=== PATIENT | female | born 1980 | race Caucasian/White ===

== ENCOUNTER 2024-05-27 09:27 | Emergency (ER) | payer BC, SELFPAY ==
[2024-05-27 09:47] VITALS: BP 130/75
[2024-05-27 10:24] LABS: % Basophils 0.3 % (0-2); % Eosinophils 0.1 % (0-6); % Immature Granulocytes 0.3 % (0-0.5); % Lymphocytes 4.7 % (20.5-51.1); % Monocytes 3.5 % (1.7-9.3); % Neutrophils 91.1 % (42.2-75.2); Absolute Lymphocytes 0.6 10^3/uL (1.2-3.4); Absolute Monocytes 0.4 10^3/uL (0.1-0.6); Absolute Neutrophils 10.8 10^3/uL (1.4-6.5); Hematocrit 35.6 % (37.0-47.0); Hemoglobin 12.1 g/dL (12.0-16.0); Mean Corpuscular Hgb 30.1 pg (27.0-31.0); Mean Corpuscular Volume 88.6 fL (81.0-99.0); Mean Platelet Volume 9.8 fL (7.4-10.4); Nucleated Red Blood Cells % 0 %; Platelet Count 229 10^3/uL (130-400); Red Blood Cell Count 4.02 10^6/uL (4.20-5.40); Red Cell Dist. Width 12.7 % (11.5-14.5); Urine Albumin Trace (Neg - Trace); Urine Bilirubin Negative (Negative); Urine Character Very Cloudy (Clear); Urine Color Yellow; Urine Glucose Negative (Negative); Urine Ketone 2+ (Negative); Urine Leukocyte 2+ (Negative); Urine Nitrite Positive (Negative); Urine Occult Blood 1+ (Negative); Urine Urobilinogen Negative (Neg - 1+); White Blood Cell Count 11.9 10^3/uL (4.8-10.8)
[2024-05-27 10:32] LABS: HCG, Serum Qualitative Screen Negative
[2024-05-27 10:36] LABS: Urine Bacteria Many (Negative); Urine Red Blood Cell 0-2 /HPF (0-2); Urine White Cell 50-60 /HPF (0-5)
[2024-05-27 10:38] LABS: ALT (SGPT) 14 U/L (0-35); AST (SGOT) 18 U/L (14-36); Alkaline Phosphatase 65 U/L (38-126); Blood Urea Nitrogen 10 mg/dl (7-17); Calcium 8.5 mg/dl (8.4-10.2); Carbon Dioxide 18 mmol/L (22-30); Chloride 101 mmol/L (98-107); Glucose 138 mg/dl (70-99); Potassium 3.8 mmol/L (3.5-5.1); Sodium 132 mmol/L (135-145); Total Bilirubin 0.4 mg/dl (0.2-1.3); Total Protein 6.8 g/dl (6.3-8.2); eGFR > 60.00
--- NOTE | 2024-05-27 11:17 | ED.GENMED ---
History of Present Illness
General
Chief Complaint: Back Pain
Source: patient
Exam Limitations: none
Time Seen by Provider: 05/27/24 11:07
History of Present Illness
History of Present Illness:
43yoF with a history of kidney stones, hypothyroidism, hyperlipidemia, anxiety, and depression presenting for evaluation of flank pain. Patient started having UTI symptoms last week. She had a telehealth appointment 6 days ago and was prescribed a
7-day course of Macrobid. She developed flank pain after starting the antibiotic. She was seen by her urologist ([facility]) 3 days ago and an outpatient CT scan was ordered which is scheduled for next week. Patient reports chills but
denies any fevers. She has developed nausea and vomiting within the past 24 hours. She had 1 episode of vomiting yesterday afternoon and 1 episode this morning. She is also experiencing worsening flank pain. Her pain initially started on the
left side but is now present bilaterally. She is worried that she has a kidney stone.
Past History
Past History
ED Past Medical History: Hypercholesterolemia, Hypothyroidism, Psychiatric (Anxiety , Depression) and Other (Vertigo, Renal calculus, )
ED Past Surgical History: Cholecystectomy and Other (Liver resection)
Social History
Tobacco: Non-smoker
Alcohol: Occasional
Drug: None
Personal:
Living: with family
Phy Exam
General Physical Exam
General Presentation: well appearing and no apparent distress
General age: appears stated age
General Skin: warm and dry
General Habitus: normal
General Mental: alert
ENT Exam
ENT Exam: normocephalic
Cardiovascular Exam
Cardiovascular Exam: no murmur and tachycardia
Pulmonary Exam
Pulmonary Exam: lungs clear, no respiratory distress, no rales, no crackles and no rhonchi
Gastrointestinal Exam
Gastrointestinal Exam: non tender, soft, non distended and no cva tenderness
Neurological Exam
Neurological Exam: alert
[place] Coma Scale
Eye Opening: Spontaneous
Verbal Response: Oriented
Motor Response: Obeys Commands
GCS Total Score: 15
Musculoskeletal Exam
Musculoskeletal Exam: other (+Tenderness in paraspinal musculature in lumbar region)
Skin Exam
Skin Exam: normal color and warm/dry
Psychiatric Exam
Psychiatric Exam: normal mood/affect
Course
Orders/Labs/Results
Orders:
Orders
05/27/24 09:51
EKG [Electrocardiogram (*1)] Urgent
Reason for Study: Fatigue / Weakness
EKG- Treatment ONCE
05/27/24 09:52
Test Result ONCE
05/27/24 10:08
CBC/With Diff [Complete Blood Count/With Diff] Urgent
Comprehensive Metabolic Panel Urgent
HCG, Serum Qualitative Screen Urgent
Urinalysis Reflex To Culture Urgent
Date Specimen was Collected: 05/27/24
Time Specimen was Collected: 09:52
Urine Microscopic Reflex Cult Urgent
Urine Culture Urgent
MONSE Source: U
Specimen Description:
Date Specimen was Collected: 05/27/24
Time Specimen was Collected: 09:52
05/27/24 11:15
0.9% Sodium Chloride 1000 ml [Nss] 1,000 ml IV BOLUS
CefTRIAXone [Rocephin] 2,000 mg IV NOW STA
05/27/24 11:16
CT Abd/pel Without Iv Or Oral Urgent
Comment:
Reason For Exam: bilateral flank pain, UTI symptoms
05/27/24 11:41
Lactate Level [Lactic Acid] Urgent
Blood Culture Q30M
MONSE Source: Blood/Venous
Specimen Description:
Blood Culture Q30M
MONSE Source: Blood/Venous
Specimen Description:
05/27/24 11:51
Ketorolac [Toradol] 15 mg .ROUTE .STK-MED ONE
05/27/24 11:52
Ketorolac [Toradol] 15 mg IV NOW STA
Abnormal Lab Results
05/27/24
10:08
WBC 11.9 H 10^3/uL
(4.8-10.8)
RBC 4.02 L 10^6/uL
(4.20-5.40)
Hct 35.6 L %
(37.0-47.0)
Absolute Neuts (auto) 10.8 H 10^3/uL
(1.4-6.5)
Absolute Lymphs (auto) 0.6 L 10^3/uL
(1.2-3.4)
Neutrophils % 91.1 H %
(42.2-75.2)
Lymphocytes % 4.7 L %
(20.5-51.1)
Sodium 132 L mmol/L
(135-145)
Carbon Dioxide 18 L mmol/L
(22-30)
Glucose 138 H mg/dl
(70-99)
Urine Ketones 2+ A
(Negative)
Ur Occult Blood Reflex 1+ A
(Negative)
Urine Nitrite (Reflex) Positive A
(Negative)
Leukocyte Esterase Rfl 2+ A
(Negative)
Urine WBC (Reflex) 50-60 A /HPF
(0-5)
Urine Bacteria (Reflex) Many A
(Negative)
05/27/24 10:08
05/27/24 10:08
Vital Signs
Initial and Last Documented VS:
Initial Vital Signs
Temp Pulse Resp BP Pulse Ox
98.5 F 112 16 130/75 98
05/27/24 09:47 05/27/24 09:47 05/27/24 09:47 05/27/24 09:47 05/27/24 09:47
Last Documented Vital Signs
Temp Pulse Resp BP Pulse Ox
98.5 F 103 18 116/69 98
05/27/24 09:47 05/27/24 11:55 05/27/24 11:55 05/27/24 11:55 05/27/24 09:47
MDM/Problems Addressed
Differential Diagnosis Includes:
43yoF here with flank/back pain. Currently on Macrobid for a UTI. C/o worsening flank pain, chills, n/v. No fevers. HR 112 on arrival. Remainder of vitals stable. She is acutely non-toxic appearing. No abdominal or CVA tenderness present.
Differential diagnosis includes but is not limited to: UTI, kidney stone, pyelonephritis, dehydration
Initial ED plan: Labs and UA obtained in triage. Leukocytosis noted with a WBC of 11.9. UA shows 50-60 WBC and many bacteria. Will check lactate, blood cultures, and CT abdomen. IV Rocephin and fluid bolus ordered.
*EKG
Interpreted by ED Provider?: Yes
EKG Intrepretation Date: 05/27/24
Heart Rate: 103
Rate: tachycardiac
Rhythm: sinus
[place]: normal axis
Interval: normal interval
QRS Pattern: normal QRS
Ischemia: other (nonspecific T wave changes)
*Critical Care Note
Total Time (30-74mins, 75-104mins- exclusive of procedures): Not Applicable
Update Note
Update Note:
Lactate within normal limits. CT shows intrarenal stones. No ureteral lithiasis or hydronephrosis. Patient feeling improved on reassessment. Heart rate improved after fluid bolus. No indication for hospitalization at this time. Clinical
presentation consistent with pyelonephritis. Patient is currently on Macrobid which will not cover for pyelonephritis. Will switch antibiotics to cefdinir. Patient in agreement with discharge. She was advised to follow-up closely with her
urologist. Strict ED return precautions discussed including fevers and inability to tolerate oral medications. She was discharged in stable condition.
ED Attending Note
-
Portions of this chart may have been created with voice recognition software.� Occasional wrong word or��sound alike� substitutions may have occurred due to the inherent limitations of voice recognition software.
Discharge Plan
Departure
Patient Disposition: Home (Routine Discharge)
Date of Disposition: 05/27/24
Time of Disposition: 12:49
Patient with high blood pressure during this ER visit?: No
Discharge Problem:
Pyelonephritis
Instructions: Urinary tract infection in adults - ED discharge instructions
Prescriptions:
New
cefdinir 300 mg capsule
300 mg PO BID Qty: 14 0RF
ondansetron 4 mg tablet,disintegrating
4 mg PO Q6H PRN (Reason: nausea and vomiting) Qty: 20 0RF
No Action
Yulissa
1 tab PO DAILY
norgestimate-ethinyl estradiol [Wilma] 0.25-35 mg-mcg Tablet
1 tab PO DAILY
levothyroxine 25 mcg Tablet
25 mcg PO MOTUWETH
trazodone 100 mg Tablet
100 mg PO HS
levothyroxine 50 mcg Tablet
50 mcg PO SUFRSA
fluticasone propionate [Flonase Allergy Relief] 50 mcg/actuation [place],Suspension
2 spray INTRANASAL DAILY
escitalopram oxalate [Lexapro] 20 mg Tablet
20 mg PO DAILY
phenazopyridine [Pyridium] 200 mg Tablet
200 mg PO TID
Referrals:
Sara Ramos DO [Family Provider] -
Activity Restrictions/Additional Instructions:
Switch antibiotics to cefdinir. Drink plenty of fluids and stay hydrated. Take Zofran as needed for nausea. Take Tylenol 650 mg and ibuprofen 600 mg every 6 hours as needed for pain.
Please follow-up with your urologist and family doctor by Thursday. Return to the ER with any worsening symptoms, fevers, inability to keep down medications, or if your symptoms do not improve in 3-4 days.
Interventions
Interventions:
*Risk Screen - Suicide Last Done: 05/27/24 09:47
*General Assessment Last Done: 05/27/24 09:47
*Neglect/Abuse Screening Last Done: 05/27/24 09:47
*ED COVID-19 Vaccine History Last Done: 05/27/24 12:13
*Nursing Disposition Last Done: 05/27/24 13:29
ED-Musculoskeletal Assessment Last Done: 05/27/24 12:13
Discharge Date and Time
Discharge Date/Time: 05/27/24 13:30
Print Language: THAI
[2024-05-27] MEDS: NSS 1000 IV (11:27)
[2024-05-27] MEDS: ROCEPHIN 2000 MG IV (11:28)
[2024-05-27] MEDS: TORADOL 15 MG IV (11:53)
[2024-05-27 11:55] VITALS: BP 116/69
[2024-05-27 12:02] LABS: Lactic Acid 1.8 mmol/L (0.7-2.0)
== END 2024-05-27 13:30 | disposition home or self-care (01) ==
LOC: EMR 09:27
PROVIDERS: Emergency Medicine; Physician Assistant; EMERGENCY PHYSICIAN Emergency Medicine; FAMILY PHYSICIAN Family Medicine
DX: N12 Tubulo-interstitial nephritis, not specified as acute or chronic (principal); E03.9 Hypothyroidism, unspecified; E78.00 Pure hypercholesterolemia, unspecified; F41.8 Other specified anxiety disorders; Z87.442 Personal history of urinary calculi; Z90.49 Acquired absence of other specified parts of digestive tract
CPT/HCPCS: 99284; 96374; 96375; 96361; 74176; 80053; 81003; 81015; 83605; 84703; 85025; 87040; 87077; 87086; 87186; 93005

== ENCOUNTER 2025-04-27 06:24 | Day surgery (SDC) | payer OTHER, SELFPAY | END 2025-04-27 16:07 | disposition home or self-care (01) | LOC: GI 06:24 | PROVIDERS: ATTENDING PHYSICIAN Internal Medicine | DX: Z12.11 Encounter for screening for malignant neoplasm of colon (principal); Z83.719 Family history of colon polyps, unspecified; K64.8 Other hemorrhoids; K62.1 Rectal polyp | CPT/HCPCS: 45380; 88305 ==